=== PATIENT | female | born 1970 | race Caucasian/White ===

== ENCOUNTER 2019-09-18 10:50 | Outpatient (CLI) | payer BC ==
[2019-09-18] MEDS ORDERED: Sodium Chloride 0.9% 10 ML ONE (11:05)
--- NOTE | 2019-09-18 13:50 | MRI ---
MRI ABDOMEN WITH AND WITHOUT IV CONTRAST (MR ANGIOGRAPHY) 09/18/19 HISTORY: Upper abdominal pain with diarrhea. Breast cancer with resection and chemotherapy in 2014. FINDINGS: The liver, spleen, pancreas, and adrenal glands are normal. Tiny cysts are seen in the kidneys on bot h sides. Gallbladder is not seen likely due to previous cholecystectomy. No abnormal biliary ductal dilatation seen. No free fluid or lymphadenopathy is noted in the abdomen or visualized portions of t he pelvis. The small bowel loops are not abnormally dilated. No evidence of abnormal enhancement or wall thicke cindy is seen. The bone marrow signal is normal. IMPRESSION: Tiny bilateral renal cyst, otherwise unremarkable. POS: [facility]
== END 2019-09-18 10:51 | disposition home or self-care (01) ==
LOC: MRI 10:50
PROVIDERS: ATTEND Internal Medicine Gastroenterology
DX: K58.9 Irritable bowel syndrome, unspecified (principal); R10.11 Right upper quadrant pain; K21.9 Gastro-esophageal reflux disease without esophagitis; N28.1 Cyst of kidney, acquired
CPT/HCPCS: 74183; J1610